=== PATIENT | female | born 1995 | race Caucasian/White ===

== ENCOUNTER 2022-09-15 11:26 | Emergency (ER) | payer BC, SELFPAY ==
[2022-09-15 11:33] VITALS: BP 116/71; PULSE 58; RESP 16; TEMP 36.8; O2SAT 99
--- NOTE | 2022-09-15 12:54 | ED.BACK ---
HPI - Back Pain/Injury General Chief Complaint: Back Pain/Injury Stated Complaint: back pain since Sunday-denies injury Time Seen by Provider: 09/15/22 12:09 History of Present Illness HPI Narrative: 26-year-old otherwise healthy here with complaints of upper back pain for past 3 days. Patient states that she woke up from sleep with the pain she states that every time she moves her neck she gets pain in the upper back. She denies any tingling numbness. Related Data Allergies Allergy/AdvReac Type Severity Reaction Status Date / Time No Known Allergies Allergy Verified 09/15/22 11:27 Review of Systems Review of Systems: All systems reviewed & are unremarkable except as noted in HPI and below Constitutional: Constitutional: Reports no additional constitutional complaints Eyes: Eyes: Reports no additional eye complaints ENT: Reports system reviewed and no additional complaints, except as documented Cardiovascular: Cardiovascular: Reports no additional cardiovascular complaints Respiratory: Respiratory: Reports no additional respiratory complaints Gastrointestinal: Gastrointestinal: Reports no additional gastrointestinal complaints Musculoskeletal: Musculoskeletal: Reports as per HPI Integumentary/Breasts: Skin/Breast: Reports system reviewed and no additional complaints, except as docu Neurologic: Reports system reviewed and no additional complaints, except as documented Exam Narrative: GENERAL: Well-appearing, well-nourished, and in no acute distress. HEAD: Normocephalic, atraumatic. EYES: PERRLA and EOMI.. NECK: Supple. Back pain along the trapezius muscle noted vertebral point tenderness CHEST: Clear to auscultation. No respiratory distress. HEART: Regular rate and rhythm. No murmur heard. Normal peripheral pulses. ABDOMEN: Soft, nontender, nondistended, normal active bowel sounds. EXTREMITIES: Normal range of motion. No edema. SKIN: Warm, dry, no rash. NEURO: No focal deficits. Alert and oriented x3. PSYCH: Normal mood and affect. Course Course Emergency Course: Notified patient that this muscular pain, does not need any x-ray as there was no trauma. Advised her to take pain medication and muscle relaxers as prescribed. Vital Signs Vital signs: Vital Signs Temperature 36.8 C 09/15/22 11:33 Pulse Rate 58 L 09/15/22 11:33 Respiratory Rate 16 09/15/22 11:33 Blood Pressure 116/71 09/15/22 11:33 Pulse Oximetry 99 09/15/22 11:33 Temperature 36.8 C 09/15/22 11:33 Pulse Rate 58 L 09/15/22 11:33 Respiratory Rate 16 09/15/22 11:33 Blood Pressure 116/71 09/15/22 11:33 Pulse Oximetry 99 09/15/22 11:33 Discharge Plan Discharge Clinical Impression: Upper back pain Patient Disposition: Home, Self-Care Condition: Stable Instructions: Back Pain (ED) Additional Instructions: Take meds as prescribed. Prescriptions: New ibuprofen 600 mg tablet 600 mg PO TID PRN (Reason: pain) Qty: 20 0RF cyclobenzaprine 5 mg tablet 5 mg PO TID PRN (Reason: muscle spasm) Qty: 20 0RF Follow-up/Referrals: Bonny,Raquel Winston MD [Primary Care Provider] - Stand Alone Forms: Work/School Release IP Time of Disposition: 12:57
== END 2022-09-15 13:05 | disposition home or self-care (01) ==
PROVIDERS: Emergency Provider Family Medicine; PCP Family Medicine
DX: M54.6 Pain in thoracic spine (principal)
CPT/HCPCS: 99283